=== PATIENT | male | born 1990 | race African-American/Black ===

== ENCOUNTER 2018-01-06 16:11 | Emergency (ER) | payer OTHER ==
[~2018-01-06] VITALS: Ht 180.3 cm; Wt 62.0 kg
[2018-01-06 16:34] VITALS: BP 110/59
== END 2018-01-06 16:45 | disposition home or self-care (01) ==
LOC: ER 16:11
DX: Z76.89 Persons encountering health services in other specified circumstances (principal); F17.210 Nicotine dependence, cigarettes, uncomplicated; Z71.6 Tobacco abuse counseling
CPT/HCPCS: 82962; 99283; 99406